=== PATIENT | male | born 1980 | race Caucasian/White ===

== ENCOUNTER 2021-06-05 18:12 | Emergency (ER) | payer OTHER ==
[~2021-06-05] VITALS: Ht 152.4 cm; Wt 75.5 kg
[2021-06-05 18:20] VITALS: BP_SYST 135; BP_SYST 155; BP_DIAS 126; BP_DIAS 75
--- NOTE | 2021-06-05 18:25 | NUR ---
PT TO ER BED 4
[2021-06-05] MEDS ORDERED: FAMO-92 PO (18:45)
[2021-06-05] MEDS ORDERED: methylPREDNISolone SS 125 MG in WATER STERILE 2 ML IM ONE (18:45)
[2021-06-05] MEDS ORDERED: FAMOTIDINE 20 MG TAB PO ONE (18:45)
[2021-06-05] MEDS ORDERED: DIPH25TA53 PO (18:45)
[2021-06-05] MEDS ORDERED: PRED20TA5 PO (18:45)
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
[2021-06-05] MEDS ORDERED: methylPREDNISolone SS 125 MG/2 ML VIAL ONE (18:50)
[2021-06-05] MEDS ORDERED: WATER STERILE 10 ML MC ONE (18:50)
--- NOTE | 2021-06-05 19:07 | NUR ---
Patient discharged with v/s stable. Written and verbal after care instructions given and explained. Patient alert, oriented and verbalized understanding of instructions. Ambulatory with steady gait. All questions addressed prior to discharge. ID band removed. Patient advised to follow up with PMD. Rx of BENADRYL, PEPCID, PREDNISONE given. Patient educated on indication of medication including possible reaction and side effects. Opportunity to ask questions provided and answered.
[2021-06-05 19:21] VITALS: BP 135/75
== END 2021-06-05 19:07 | disposition home or self-care (01) ==
LOC: MED 18:12
DX: L50.0 Allergic urticaria (principal)
CPT/HCPCS: 96372; 99283; J2930

== ENCOUNTER 2021-07-23 15:10 | Emergency (ER) | payer OTHER ==
[~2021-07-23] VITALS: Ht 157.5 cm; Wt 75.3 kg
[~2021-07-23 15:10] MED LIST: DIPH25TA53 PO; FAMO-92 PO; PRED20TA5 PO
[2021-07-23 15:21] VITALS: BP 106/67
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
[2021-07-23] MEDS ORDERED: IBUP-1842 PO (16:25)
[2021-07-23 16:32] VITALS: BP 112/72
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
== END 2021-07-23 16:32 | disposition home or self-care (01) ==
LOC: MED 15:10
DX: S52.591A Other fractures of lower end of right radius, initial encounter for closed fracture (principal); W18.39XA Other fall on same level, initial encounter; Y93.89 Activity, other specified; Y92.89 Other specified places as the place of occurrence of the external cause; Y99.8 Other external cause status
CPT/HCPCS: 73110; 99283